=== PATIENT | female | born 1965 | race African-American/Black ===

== ENCOUNTER 2019-02-13 16:53 | Emergency (ER) | payer OTHER ==
[~2019-02-13] VITALS: Ht 162.6 cm; Wt 68.0 kg
[~2019-02-13 16:53] MED LIST: CALCIUM ASCORB500 MG PO; CIPROFLOXACIN500 M1 PO; DIOVAN HCT 1601 EAC1 PO; DIOVAN HCT 1601 EACH PO; DIOVAN40 MG PO; HYDROCHLOROTHIA25 M1 PO; KLOR-CON 10 ER10 MEQ PO; LAMICTAL 25 MG25 MG PO; LAMOTRIGINE100 MG PO; LIPITOR10 MG PO; LIPITOR20 MG PO; NORCO 5-325 TA1 EACH PO; POTASSIUM20 PO; PRILOSEC 20 MG20 MG PO; PYRIDIUM200 MG PO; REMERON30 MG PO; VITAMIN D 5050000 I1; VITAMIN D31000 UNI2 PO; ZOCOR40 MG PO; [UNRECOGNIZED DRUG - REMARK]
[2019-02-13 20:25] VITALS: BP 179/80
== END 2019-02-13 20:25 | disposition home or self-care (01) ==
LOC: ER 16:53
DX: H61.21 Impacted cerumen, right ear (principal); F17.210 Nicotine dependence, cigarettes, uncomplicated; I10 Essential (primary) hypertension; E78.00 Pure hypercholesterolemia, unspecified; K21.9 Gastro-esophageal reflux disease without esophagitis; F32.9 Major depressive disorder, single episode, unspecified; Z88.1 Allergy status to other antibiotic agents; Z88.2 Allergy status to sulfonamides

== ENCOUNTER → 2019-08-31 | Outpatient (CLI) | payer OTHER | LOC: RAD 08-10 14:15 | DX: M19.011 Primary osteoarthritis, right shoulder (principal) ==